=== PATIENT | male | born 1975 | race Caucasian/White ===

== ENCOUNTER 2020-01-13 19:38 | Emergency (ER) | payer OTHER, SELFPAY ==
[2020-01-13 19:38] VITALS: BP 146/83; PULSE 80; RESP 16; TEMP 37; O2SAT 95; BMI 28.1
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
[2020-01-13 20:44] VITALS: BP 117/79; PULSE 79; RESP 16; O2SAT 96
== END 2020-01-13 20:46 | disposition home or self-care (01) ==
LOC: ER 20:31
PROVIDERS: Emergency Provider Emergency Medicine
DX: S16.1XXA Strain of muscle, fascia and tendon at neck level, initial encounter (principal); V89.2XXA Person injured in unspecified motor-vehicle accident, traffic, initial encounter
CPT/HCPCS: 12345; 70450; 72125; 73562; 99283